=== PATIENT | male | born 1945 | race Caucasian/White ===

== ENCOUNTER → 2016-10-11 | Outpatient (CLI) | payer MEDICARE, OTHER ==
[~2016-10-11] VITALS: Ht 180.3 cm; Wt 120.7 kg
[~2016-10-11] MED LIST: ESMOLOL INJ 100MG/10ML VIAL As Ordered ONE; LABETALOL HCL 100 MG/20 ML VIAL As Ordered ONE; LIDOCAINE 2% INJ 100 MG/5 ML SDV (FOR ANES.) As Ordered ONE; METO12TA PO; MICA40TA PO; MUPI2OI TOP; NEXI40CA PO; NS 1,000 ML IV SCH; PROPOFOL 200 MG/20 ML VIAL As Ordered ONE; SIMV20TA2 PO; VERAP80TA PO; XARE20TA PO
--- NOTE | 2016-10-11 14:47 | ROOR ---
Patient Name: Wong Sumner Procedure Date: 10/11/2016 2:00 PM Date of : 1945 Age: 70 Room: [facility] Gender: Male Note Status: Finalized Procedure: Colonoscopy to Cecum + Cold Snare Polypectomy + Biopsy Polypectomy + Hemoclips Indications: High risk colon cancer surveillance: Personal history of adenoma with villous component Providers: Mike Hassan MD Referring MD: ZEYNEP Damon Requesting Provider: Medicines: Monitored Anesthesia Care Complications: No immediate complications. Procedure: Pre-Anesthesia Assessment: - The heart rate, respiratory rate, oxygen saturations, blood pressure, adequacy of pulmonary ventilation, and response to care were monitored throughout the procedure. The Colonoscope was introduced through the anus and advanced to the cecum, identified by appendiceal orifice and ileocecal valve. The colonoscopy was performed without difficulty. The patient tolerated the procedure well. The quality of the bowel preparation was good. Findings: The perianal and digital rectal examinations were normal. Non-bleeding internal hemorrhoids were found during retroflexion. The hemorrhoids were small and Grade I (internal hemorrhoids that do not prolapse). Multiple small and large-mouthed diverticula were found in the recto-sigmoid colon, sigmoid colon and descending colon. Multiple sessile polyps were found at 60 cm proximal to the anus. The polyps were medium in size. These polyps were removed with a cold snare. Resection and retrieval were complete. To prevent bleeding after the polypectomy, four hemostatic clips were successfully placed (MR conditional). There was no bleeding at the end of the procedure. A medium polyp was found in the mid transverse colon. The polyp was sessile. The polyp was removed with a cold snare. Resection and retrieval were complete. To prevent bleeding after the polypectomy, two hemostatic clips were successfully placed (MR conditional). There was no bleeding at the end of the procedure. A large polyp was found in the mid ascending colon. The polyp was sessile. The polyp was removed with a jumbo cold forceps. Polyp resection was incomplete. The resected tissue was retrieved. The exam was otherwise without abnormality on direct and retroflexion views. Impression: - Non-bleeding internal hemorrhoids. - Diverticulosis in the recto-sigmoid colon, in the sigmoid colon and in the descending colon. - Multiple medium polyps at 60 cm proximal to the anus, removed with a cold snare. Resected and retrieved. Clips (MR conditional) were placed. - One medium polyp in the mid transverse colon, removed with a cold snare. Resected and retrieved. Clips (MR conditional) were placed. - One large polyp in the mid ascending colon, removed with a jumbo cold forceps. Incomplete resection. Resected tissue retrieved. - The examination was otherwise normal on direct and retroflexion views. - The exam was otherwise normal to the cecum. Recommendation: - Patient has a contact number available for emergencies. The signs and symptoms of potential delayed complications were discussed with the patient. Return to normal activities tomorrow. Written discharge instructions were provided to the patient. - High fiber diet. - Discharge patient to home. - Continue present medications. - Await pathology results. - Repeat colonoscopy for surveillance based on pathology results. - Return to referring physician. - The findings and recommendations were discussed with the patient's family. - Resume Xarelto (rivaroxaban) at prior dose tomorrow. - Check Portal Online for Path Results.([email or web address] - The findings and recommendations were discussed with the patient's family. Mike Hassan MD Mike Hassan MD 10/11/2016 2:47:01 PM This report has been signed electronically. Number of Addenda: 0 Note Initiated On: 10/11/2016 2:00 PM Estimated Blood Loss: Estimated blood loss: none.
[2016-10-11 15:10] VITALS: BP 153/82
== END ==
LOC: M OPP 12:29
PROVIDERS: ATTEND Internal Medicine Gastroenterology
DX: Z12.11 Encounter for screening for malignant neoplasm of colon (principal); Z86.010 Personal history of colon polyps; D37.4 Neoplasm of uncertain behavior of colon; D12.3 Benign neoplasm of transverse colon; D12.2 Benign neoplasm of ascending colon; K64.0 First degree hemorrhoids; K57.30 Diverticulosis of large intestine without perforation or abscess without bleeding; I48.91 Unspecified atrial fibrillation; C32.9 Malignant neoplasm of larynx, unspecified; Z92.3 Personal history of irradiation; I10 Essential (primary) hypertension; F17.200 Nicotine dependence, unspecified, uncomplicated; Z79.01 Long term (current) use of anticoagulants; Z79.899 Other long term (current) drug therapy; Z88.8 Allergy status to other drugs, medicaments and biological substances

== ENCOUNTER 2017-02-14 08:15 | Outpatient (CLI) | payer MEDICARE, OTHER ==
[~2017-02-14] VITALS: Ht 180.3 cm; Wt 117.9 kg
[~2017-02-14 08:15] MED LIST changes: -ESMOLOL INJ 100MG/10ML VIAL As Ordered ONE; -LABETALOL HCL 100 MG/20 ML VIAL As Ordered ONE; -LIDOCAINE 2% INJ 100 MG/5 ML SDV (FOR ANES.) As Ordered ONE; -METO12TA PO; +METO1TAB87 PO; -NS 1,000 ML IV SCH; -PROPOFOL 200 MG/20 ML VIAL As Ordered ONE
[2017-02-14] MEDS ORDERED: NS 1,000 ML IV ONE (08:30)
[2017-02-14] MEDS ORDERED: LIDOCAINE 2% INJ 100 MG/5 ML SDV (FOR ANES.) As Ordered ONE (09:39)
[2017-02-14] MEDS ORDERED: PROPOFOL 200 MG/20 ML VIAL As Ordered ONE ×2 (09:39→09:51)
--- NOTE | 2017-02-14 10:19 | ROOR ---
Patient Name: Wnog Sumner Procedure Date: 02/14/2017 9:35 AM Date of : 1945 Age: 71 Room: [facility] Gender: Male Note Status: Finalized Procedure: Total Colonoscopy to Cecum + Cold Snare Polypectomy + Hemoclips + APC Indications: High risk colon cancer surveillance: Personal history of adenoma with high grade dysplasia, High risk colon cancer surveillance: Personal history of adenoma with villous component Providers: Mike Hassan MD Referring MD: ZEYNEP Damon Requesting Provider: Medicines: Monitored Anesthesia Care Complications: No immediate complications. Procedure: Pre-Anesthesia Assessment: - The heart rate, respiratory rate, oxygen saturations, blood pressure, adequacy of pulmonary ventilation, and response to care were monitored throughout the procedure. The Colonoscope was introduced through the anus and advanced to the cecum, identified by appendiceal orifice and ileocecal valve. The colonoscopy was performed without difficulty. The patient tolerated the procedure well. The quality of the bowel preparation was excellent. Findings: The perianal and digital rectal examinations were normal. Non-bleeding internal hemorrhoids were found during retroflexion. The hemorrhoids were small and Grade I (internal hemorrhoids that do not prolapse). Scattered small-mouthed diverticula were found in the recto-sigmoid colon, sigmoid colon and descending colon. A large polyp was found in the proximal ascending colon. The polyp was carpet-like. The polyp was removed with a cold snare. Polyp resection was incomplete. The resected tissue was retrieved. Coagulation for tissue destruction using argon plasma at 0.8 liters/minute and 20 islas was successful. To prevent bleeding after the polypectomy, three hemostatic clips were successfully placed (MR conditional). There was no bleeding at the end of the procedure. Multiple sessile polyps were found at 60 cm proximal to the anus. The polyps were small in size. These polyps were removed with a jumbo cold forceps. Resection and retrieval were complete. The exam was otherwise without abnormality on direct and retroflexion views. Impression: - Non-bleeding internal hemorrhoids. - Diverticulosis in the recto-sigmoid colon, in the sigmoid colon and in the descending colon. - One large polyp in the proximal ascending colon, removed with a cold snare. Incomplete resection. Resected tissue retrieved. Treated with argon plasma coagulation (APC). Clips (MR conditional) were placed. - Multiple small polyps at 60 cm proximal to the anus, removed with a jumbo cold forceps. Resected and retrieved. - The examination was otherwise normal on direct and retroflexion views. - The exam was otherwise normal to the cecum. Recommendation: - Patient has a contact number available for emergencies. The signs and symptoms of potential delayed complications were discussed with the patient. Return to normal activities tomorrow. Written discharge instructions were provided to the patient. - High fiber diet. - Discharge patient to home. - Continue present medications. - Await pathology results. - Telephone GI clinic for pathology results in 1 week. - Repeat colonoscopy for surveillance based on pathology results. - Return to referring physician. - The findings and recommendations were discussed with the patient's family. Mike Hassan MD Mike Hassan MD 02/14/2017 10:19:22 AM This report has been signed electronically. Number of Addenda: 0 Note Initiated On: 02/14/2017 9:35 AM Estimated Blood Loss: Estimated blood loss: none.
[2017-02-14 10:45] VITALS: BP 137/90
== END 2017-02-14 11:00 | disposition home or self-care (01) ==
LOC: M OPP 08:15
PROVIDERS: ATTEND Internal Medicine Gastroenterology
DX: Z12.11 Encounter for screening for malignant neoplasm of colon (principal); D12.2 Benign neoplasm of ascending colon; D12.4 Benign neoplasm of descending colon; K64.0 First degree hemorrhoids; K57.30 Diverticulosis of large intestine without perforation or abscess without bleeding; Z86.010 Personal history of colon polyps; I48.91 Unspecified atrial fibrillation; I10 Essential (primary) hypertension; E78.5 Hyperlipidemia, unspecified; R12 Heartburn; Z85.818 Personal history of malignant neoplasm of other sites of lip, oral cavity, and pharynx; Z92.3 Personal history of irradiation; Z97.8 Presence of other specified devices; F17.200 Nicotine dependence, unspecified, uncomplicated; Z88.8 Allergy status to other drugs, medicaments and biological substances; Z79.899 Other long term (current) drug therapy; Z79.01 Long term (current) use of anticoagulants

== ENCOUNTER → 2017-11-08 | Outpatient (CLI) | payer MEDICARE, OTHER | LOC: M PLARAD 13:00 | DX: C32.9 Malignant neoplasm of larynx, unspecified (principal) | CPT/HCPCS: 78815 ==